=== PATIENT | male | born 1965 | race Caucasian/White ===

== ENCOUNTER 2016-10-26 13:56 | Emergency (ER) | payer BC, OTHER ==
[2016-10-26 15:44] LABS: Hematocrit 43 % (42-52); Hemoglobin 14.5 g/dl (14.0-18.0); Mean Corpuscular HGB Conc 34 g/dl (31-36); Mean Corpuscular Hemoglobin 33 pg (27-31); Mean Corpuscular Volume 96 fL (80-94); Mean Platelet Volume 8 um3 (7.4-10.4); Red Blood Count 4.45 10^6/ul (4.0-5.4); Red Cell Distribution Width 13 % (10.5-15); White Blood Count 6.3 10^3/ul (3.5-10.8)
[2016-10-26 16:00] LABS: ALT 26 U/L (7-52); AST 21 U/L (13-39); Albumin 4.7 g/dL (3.2-5.2); Alkaline Phosphatase 74 U/L (34-104); Anion Gap 6 mmol/L (2-11); BUN/Creatinine Ratio 12.6 (8-20); Blood Urea Nitrogen 16 mg/dL (6-24); C Reactive Protein < 1.00 mg/L (< 5.00); CO2 Carbon Dioxide 29 mmol/L (22-32); Calcium 10.2 mg/dL (8.6-10.3); Chloride 104 mmol/L (101-111); EGFR African American 77.2 (>60); Globulin 2.9 g/dL (2-4); Glucose 93 mg/dL (70-100); Magnesium 2.2 mg/dL (1.9-2.7); Potassium 4.3 mmol/L (3.5-5.0); Sodium 139 mmol/L (133-145); Total Protein 7.6 g/dL (6.4-8.9)
[2016-10-26 16:20] LABS: TSH (Thyroid Stimulating Horm) 1.82 mcIU/mL (0.34-5.60)
[2016-10-26 17:21] VITALS: BP 137/81
[2016-10-26 17:26] LABS: Erythrocyte Sed Rate 18 mm/Hr (0-20)
--- NOTE | 2016-10-26 20:14 | ED ---
Destinee Carranza Emily, scribed for Kareem Koo MD on 10/26/16 at 1526 . Complex/Multi-Sys Presentation - HPI Summary HPI Summary: This patient is a 50 year old M presenting to [facility] with a chief complaint of body aches in all extremities for 2 weeks. The CC is described as aches in my joints, muscles, and bones. The patient rates the pain 7/10 in severity. Symptoms aggravated by nothing. Symptoms alleviated by nothing. Patient reports feeling foggy and weakness (feels like he is losing strength in weight lifting ). Patient denies rash, fevers, diaphoresis, chills, and abd pain. Pt denies acknowledgement of tick bites. Pt is active (exercises 5 days a week). PSHx of back surgery and knee surgery. - History Of Current Complaint Chief Complaint: EDGeneral Time Seen by Provider: 10/26/16 15:07 Hx Obtained From: Patient Onset/Duration: Sudden Onset, Lasting Weeks, Still Present Timing: Constant Severity Currently: Moderate Severity Initially: Moderate Aggravating Factor(s): Nothing Alleviating Factor(s): Nothing Associated Signs And Symptoms: Positive: Other - "Feeling foggy" and weakness ( feels like he is losing strength in weight lifting). Denies rash, fevers, diaphoresis, chills, and abd pain. - Allergies/Home Medications Allergies/Adverse Reactions: Allergies Allergy/AdvReac Type Severity Reaction Status Date / Time CT SCAN DYE Allergy Severe Nausea And Uncoded 07/09/15 08:06 Vomiting PMH/Surg Hx/FS Hx/Imm Hx Endocrine/Hematology History: Denies: Hx Diabetes Cardiovascular History: Reports: Hx Syncope - approx 5 years ago pt had a few episodes of passing out. Saw neurologist. Respiratory History: Denies: Hx Asthma, Hx Chronic Obstructive Pulmonary Disease (COPD) GI History: Reports: Other GI Disorders - OCCASIONAL INDIGESTION/HEARTBURN History: Reports: Other Problems/Disorders - pt states past 2 weeks his urinary flow has decreased Musculoskeletal History: Reports: Hx Arthritis - KNEE, BACK, HIP, Hx Back Problems - Back surgery approx 15 years ago, Other Musculoskeletal History - HX OF LOWER BACK SURGERY Sensory History: Reports: Hx Contacts or Glasses - GLASSES Denies: Hx Hearing Aid Opthamlomology History: Reports: Hx Contacts or Glasses - GLASSES Neurological History: Reports: Other Neuro Impairments/Disorders - Hx possible seizures 5 years ago Psychiatric History: Reports: Hx Anxiety, Hx Depression - HX OF - Surgical History Surgery Procedure, Year, and Place: 2014 LEFT KNEE ARTHROSCOPIC SURGERY, JASSI. 2003 LOWER BACK SURGERY WITH INSTRUMENTED FUSION, [facility]A [facility] Hx Anesthesia Reactions: No Infectious Disease History: No Infectious Disease History: Denies: Traveled Outside the [place] in Last 30 Days - Family History Known Family History: Positive: Cardiac Disease, Other - Aneurysm. - Social History Alcohol Use: Rare Substance Use Type: Reports: None Smoking Status (MU): Former Smoker Type: Cigarettes Amount Used/How Often: 2 PPD Have You Smoked in the Last Year: No Review of Systems Negative: Fever, Chills, Skin Diaphoresis Negative: Abdominal Pain Positive: Other - Body aches and weakness. Negative: Rash Neurological: Other - "Feeling foggy" All Other Systems Reviewed And Are Negative: Yes Physical Exam Triage Information Reviewed: Yes Vital Signs On Initial Exam: Initial Vitals Temp Pulse Resp BP Pulse Ox 98.5 F 83 16 120/73 98 10/26/16 14:00 10/26/16 14:00 10/26/16 14:00 10/26/16 14:00 10/26/16 14:00 Vital Signs Reviewed: Yes Appearance: Positive: Well-Appearing, No Pain Distress Skin: Positive: Warm, Skin Color Reflects Adequate Perfusion, Dry Head/Face: Positive: Normal Head/Face Inspection Eyes: Positive: Normal ENT: Positive: Normal ENT inspection Neck: Positive: Supple, Nontender Respiratory/Lung Sounds: Positive: Clear to Auscultation, Breath Sounds Present Cardiovascular: Positive: RRR Abdomen Description: Positive: Nontender, Soft Bowel Sounds: Positive: Present Musculoskeletal: Positive: Normal Neurological: Positive: Normal, Sensory/Motor Intact, Alert, Oriented to Person Place, Time, CN Intact II-III Psychiatric: Positive: Affect/Mood Appropriate - [place] Coma Scale Coma Scale Total: 15 Diagnostics - Vital Signs Vital Signs Temp Pulse Resp BP Pulse Ox 10/26/16 15:07 98.5 F 81 16 123/69 100 10/26/16 14:00 98.5 F 83 16 120/73 98 - Laboratory Lab Results: Lab Results 10/26/16 10/26/16 Range/Units 15:30 15:30 WBC 6.3 (3.5-10.8) 10^3/ul RBC 4.45 (4.0-5.4) 10^6/ul Hgb 14.5 (14.0-18.0) g/dl Hct 43 (42-52) % MCV 96 H (80-94) fL MCH 33 H (27-31) pg MCHC 34 (31-36) g/dl RDW 13 (10.5-15) % Plt Count 189 (150-450) 10^3/ul MPV 8 (7.4-10.4) um3 Neut % (Auto) 60.5 (38-83) % Lymph % (Auto) 29.3 (25-47) % [place] % (Auto) 8.3 (1-9) % Eos % (Auto) 1.0 (0-6) % Baso % (Auto) 0.9 (0-2) % Absolute Neuts (auto) 3.8 (1.5-7.7) 10^3/ul Absolute Lymphs (auto) 1.8 (1.0-4.8) 10^3/ul Absolute Monos (auto) 0.5 (0-0.8) 10^3/ul Absolute Eos (auto) 0.1 (0-0.6) 10^3/ul Absolute Basos (auto) 0.1 (0-0.2) 10^3/ul Absolute Nucleated RBC 0 10^3/ul Nucleated RBC % 0.1 ESR 18 (0-20) mm/Hr Sodium 139 (133-145) mmol/L Potassium 4.3 (3.5-5.0) mmol/L Chloride 104 (101-111) mmol/L Carbon Dioxide 29 (22-32) mmol/L Anion Gap 6 (2-11) mmol/L BUN 16 (6-24) mg/dL Creatinine 1.27 H (0.67-1.17) mg/dL Est GFR ( Amer) 77.2 (>60) Est GFR (Non-Af Amer) 60.0 (>60) BUN/Creatinine Ratio 12.6 (8-20) Glucose 93 (70-100) mg/dL Calcium 10.2 (8.6-10.3) mg/dL Magnesium 2.2 (1.9-2.7) mg/dL Total Bilirubin 0.40 (0.2-1.0) mg/dL AST 21 (13-39) U/L ALT 26 (7-52) U/L Alkaline Phosphatase 74 (34-104) U/L Troponin I 0.00 (<0.04) ng/mL C-Reactive Protein < 1.00 (< 5.00) mg/L Total Protein 7.6 (6.4-8.9) g/dL Albumin 4.7 (3.2-5.2) g/dL Globulin 2.9 (2-4) g/dL Albumin/Globulin Ratio 1.6 (1-3) TSH 1.82 (0.34-5.60) mcIU/mL Result Diagrams: 10/26/16 15:30 10/26/16 15:30 Lab Statement: Any lab studies that have been ordered have been reviewed, and results considered in the medical decision making process. Complex Multi-Symp Course/Dx Course Of Treatment: Mr. Amaya presetned with two weeks of progressively worsening 'bone aches' He says his joints and muscles are OK. He denied any rashes or fevers. His W/U here was unremarkable. Tick-borne illness is certainly a possibility and I have sent titers and will treat with Doxycycline and encourage F/U with the Physician Referral Service as he has no PMD. - Diagnoses Provider Diagnoses: Myalgia Discharge - Discharge Plan Condition: Stable Disposition: HOME Prescriptions: DOXYcycline CAP(*) [DOXYcycline 100MG CAP(*)] 100 mg PO BID #28 cap Patient Education Materials: Musculoskeletal Pain (ED) Referrals: [facility] [place] PHYSICIAN REFERRAL [Outside] - 3 Days The documentation as recorded by the Destinee roe Emily accurately reflects the service I personally performed and the decisions made by me, Kareem Koo MD.
[2016-10-29 19:39] LABS: B garinii/B afzelii PCR Negative (Negative); B mayonii PCR Negative (Negative)
[2016-10-29 19:40] LABS: B. miyamotoi PCR, B Negative (Negative); Babesia divergens/MO-1 Negative (Negative); Babesia ducani Negative (Negative); Ehrlichia ewingii/canis Negative (Negative)
== END 2016-10-26 17:58 | disposition home or self-care (01) ==
LOC: ED 13:56
DX: M79.1 Myalgia (principal); R53.1 Weakness; Z87.891 Personal history of nicotine dependence
CPT/HCPCS: 36415; 80053; 83735; 84443; 84484; 85025; 85652; 86140; 87476; 87798; 99282